=== PATIENT | female | born 1960 | race Two or more races ===

== ENCOUNTER 2016-12-08 14:15 | Emergency (ER) | payer BC ==
[2016-12-08 15:37] LABS: Hematocrit 42 % (35-47); Hemoglobin 14.1 g/dl (12.0-16.0); Mean Corpuscular HGB Conc 34 g/dl (31-36); Mean Corpuscular Hemoglobin 32 pg (27-31); Mean Corpuscular Volume 95 fL (80-97); Mean Platelet Volume 7 um3 (7.4-10.4); Red Blood Count 4.44 10^6/ul (4.0-5.4); Red Cell Distribution Width 14 % (10.5-15); White Blood Count 6.4 10^3/ul (3.5-10.8)
[2016-12-08 15:40] LABS: Albumin 4.2 g/dL (3.2-5.2); BUN/Creatinine Ratio 10.9 (8-20); Calcium 9.5 mg/dL (8.6-10.3); EGFR Non-African American 95.6 (>60); Globulin 3.1 g/dL (2-4); Potassium 3.5 mmol/L (3.5-5.0); Total Bilirubin 0.2 mg/dL (0.2-1.0); Total Protein 7.3 g/dL (6.4-8.9)
[2016-12-08 16:11] LABS: TSH (Thyroid Stimulating Horm) 1.67 mcIU/mL (0.34-5.60)
--- NOTE | 2016-12-08 17:10 | ED ---
Abdominal Pain/Female - HPI Summary HPI Summary: Pt here w/ sx of feeling lightheaded and dizzy x 1 month. Fell today at work while turning around walking. Co-workers were teasing her about being intoxicated as she was unsteady, walking into [employer], etc d/t dizziness. Feels fatigued. Denies chest pain, SOB but does have SHEETS and has not been eating as she has a reduced appetite. Epigastric and Rt sided ab pain x 3-4 months - constant, dull aching with intermittent sharp pains. When she does eat, has diarrhea which is black and tarry - denies claire hematochezia, mucous stools. Pt 's note from PCP indicates FREDRICK was performed but no stool collected. Denies fever, chills, skin changes. H/o colonoscopy which was normal. Advised to have f/u in 3 years as her sister has colon ca - she has not had repeat performed yet. Smokes. She personally has h/o breast CA - radiation w/o chemo. Was offered 5 year tx but d/t low risk evaluation, she opted to avoid tx. Past Med hx: IBS - no significant issues to report. Denies use of NSAID's. - History of Current Complaint Chief Complaint: EDAbdPain Stated Complaint: DIZZY/LIGHT HEADED Time Seen by Provider: 12/08/16 16:44 Hx Obtained From: Patient Pain Intensity: 7 Allergies/Adverse Reactions: Allergies Allergy/AdvReac Type Severity Reaction Status Date / Time No Known Allergies Allergy Verified 12/08/16 14:16 PMH/Surg Hx/FS Hx/Imm Hx Previously Healthy: Yes Endocrine/Hematology History: Denies: Hx Anticoagulant Therapy, Hx Blood Disorders, Hx Thyroid Disease, Hx Anemia, Hx Unexplained Bleeding, Autoimmune Disease GI History: Reports: Hx Irritable Bowel Denies: Hx Cirrhosis, Hx Crohn's Disease, Hx Diverticulosis, Hx Gall Bladder Disease, Hx Gastroesophageal Reflux Disease, Hx Gastrointestinal Bleed, Hx Obstructive Bowel, Hx Ulcer History: Reports: Other Problems/Disorders - hysterectomy with partial oophorectomy - Cancer History Cancer Type, Location and Year: Rt breast cancer Hx Chemotherapy: No Hx Radiation Therapy: Yes Infectious Disease History: No Infectious Disease History: Denies: Traveled Outside the [place] in Last 30 Days - Family History Known Family History: Positive: Other - sister - colon CA - Social History Occupation: Employed Full-time Lives: With Family Alcohol Use: None Hx Substance Use: No Substance Use Type: Reports: None Hx Tobacco Use: Yes Smoking Status (MU): Current Every Day Smoker Review of Systems Positive: Chills - feels cold today, Fatigue. Negative: Fever Eyes: Negative ENT: Negative Cardiovascular: Negative Respiratory: Negative Gastrointestinal: Other - see HPI Positive: see HPI, other - ab pain sometimes worse w/ urination - no pain in pelvis or vaginal area w/ urination. Negative: burning, discharge, frequency, flank pain, hematuria Musculoskeletal: Negative Skin: Negative Neurological: Other - dizziness as in HPI Positive: Headache, Weakness. Negative: Paresthesia, Numbness Psychological: Normal All Other Systems Reviewed And Are Negative: Yes Physical Exam Triage Information Reviewed: Yes Vital Signs On Initial Exam: Initial Vitals Temp Pulse Resp BP Pulse Ox 98.6 F 67 16 172/102 100 12/08/16 14:16 12/08/16 14:16 12/08/16 14:16 12/08/16 14:16 12/08/16 14:16 Vital Signs Reviewed: Yes Appearance: Positive: Well-Appearing - appears mildly fatigued, No Pain Distress - appears comfortable lying on stretcher, Thin Skin: Positive: Warm, Dry Head/Face: Positive: Normal Head/Face Inspection Eyes: Positive: Normal, EOMI, Conjunctiva Clear - anicteric sclera ENT: Positive: Hearing grossly normal Neck: Positive: Supple, Nontender Respiratory/Lung Sounds: Positive: Clear to Auscultation, Breath Sounds Present Cardiovascular: Positive: Normal, RRR, Pulses are Symmetrical in both Upper and Lower Extremities, S1, S2. Negative: Murmur, Rub Abdomen Description: Positive: Soft, Other: - Rt side TTP - gaurding - no rebounding; epigastric TTP - no rebounding Bowel Sounds: Positive: Present Musculoskeletal: Positive: Normal, Strength/ROM Intact Neurological: Positive: Normal, Sensory/Motor Intact, Alert, Oriented to Person Place, Time, CN Intact II-III Psychiatric: Positive: Normal Diagnostics - Vital Signs Vital Signs Temp Pulse Resp BP Pulse Ox 12/08/16 15:18 98.2 F 65 16 166/83 98 12/08/16 14:16 98.6 F 67 16 172/102 100 - Laboratory Lab Results: Lab Results 12/08/16 12/08/16 12/08/16 Range/Units 15:15 15:15 15:15 WBC 6.4 (3.5-10.8) 10^3/ul RBC 4.44 (4.0-5.4) 10^6/ul Hgb 14.1 (12.0-16.0) g/dl Hct 42 (35-47) % MCV 95 (80-97) fL MCH 32 H (27-31) pg MCHC 34 (31-36) g/dl RDW 14 (10.5-15) % Plt Count 292 (150-450) 10^3/ul MPV 7 L (7.4-10.4) um3 Neut % (Auto) 42.0 (38-83) % Lymph % (Auto) 47.4 H (25-47) % [place] % (Auto) 7.5 (1-9) % Eos % (Auto) 2.0 (0-6) % Baso % (Auto) 1.1 (0-2) % Absolute Neuts (auto) 2.7 (1.5-7.7) 10^3/ul Absolute Lymphs (auto) 3.1 (1.0-4.8) 10^3/ul Absolute Monos (auto) 0.5 (0-0.8) 10^3/ul Absolute Eos (auto) 0.1 (0-0.6) 10^3/ul Absolute Basos (auto) 0.1 (0-0.2) 10^3/ul Absolute Nucleated RBC 0.01 10^3/ul Nucleated RBC % 0.2 Sodium 137 (133-145) mmol/L Potassium 3.5 (3.5-5.0) mmol/L Chloride 104 (101-111) mmol/L Carbon Dioxide 26 (22-32) mmol/L Anion Gap 7 (2-11) mmol/L BUN 7 (6-24) mg/dL Creatinine 0.64 (0.51-0.95) mg/dL Est GFR ( Amer) 123.0 (>60) Est GFR (Non-Af Amer) 95.6 (>60) BUN/Creatinine Ratio 10.9 (8-20) Glucose 81 (70-100) mg/dL Lactic Acid 0.4 L (0.5-2.0) mmol/L Calcium 9.5 (8.6-10.3) mg/dL Magnesium 2.0 (1.9-2.7) mg/dL Total Bilirubin 0.20 (0.2-1.0) mg/dL AST 17 (13-39) U/L ALT 10 (7-52) U/L Alkaline Phosphatase 73 (34-104) U/L Troponin I 0.00 (<0.04) ng/mL Total Protein 7.3 (6.4-8.9) g/dL Albumin 4.2 (3.2-5.2) g/dL Globulin 3.1 (2-4) g/dL Albumin/Globulin Ratio 1.4 (1-3) TSH 1.67 (0.34-5.60) mcIU/mL Result Diagrams: 12/08/16 15:15 12/08/16 15:15 Lab Statement: Any lab studies that have been ordered have been reviewed, and results considered in the medical decision making process. Re-Evaluation - Re-Evaluation First Eval Change: Unchanged - pt declined pain medication Abdominal Pain Fem Course/Dx - Course Course Of Treatment: Pt presents w/ 3-4 month h/o ab pain and fatigue past 1 month. Admits to melena stools and Rt sided pain primarily. She had an episode of dizziness today which took her to her PCP's office - sent here for further evaluation. Labs are WNL and do not appear to reflect infection however her CT scan reveals an inflammed section of her distal colon which cannot rule out neoplasm. Discussed possible dx options of these findings with pt and and encouraged rest until cleared by PCP. Provided zofran so pt may eat and drink to prevent weakness again. Advised calling PCP tomorrow for close follow- up with further labs and colonoscopy. Pt and agree w/ plan. She declined pain meds and saline while here. - Diagnoses Provider Diagnoses: Colitis Discharge - Discharge Plan Condition: Stable Disposition: HOME Prescriptions: Ondansetron ODT TAB* [Zofran 4 MG Odt TAB*] 4 mg PO Q8H PRN #10 tab.odt PRN Reason: Nausea Patient Education Materials: Colitis (ED) Forms: *Work Release Referrals: Clover Murphy MD [Primary Care Provider] - Additional Instructions: Your CT scan today reveals inflammation of your distal colon. This may be due to infection cause or inflammatory cause. Inflammatory causes include but are not limited to Crohn's, Ulcerative colitis, chronic diarrhea, and/or colon cancer. It is important that you stay hydrated, rest and follow-up with your PCP this week to schedule a colonoscopy LIB[facility]. Call tomorrow to make an appointment. *If you develop weakness, fatigue, vomiting, bloody diarrhea, chest pain or shortness of breath, return to ED
[2016-12-08] MEDS ORDERED: Ondansetron INJ* 2 MG/ML VIAL IV ONE (17:46)
[2016-12-08] MEDS ORDERED: Morphine INJ* 4 MG/ML 1 ML SYRINGE IV ONE (17:46)
[2016-12-08 17:57] LABS: C Reactive Protein 1.17 mg/L (< 5.00)
[2016-12-08] MEDS ORDERED: Iohexol 300* (CONTRAST) 10 ML SDV IV ONE (20:04)
--- NOTE | 2016-12-08 20:23 | RAD ---
CLINICAL HISTORY: Abdominal pain, melena, weakness COMPARISON: None TECHNIQUE: Multiple contiguous axial CT scans were obtained of the abdomen and pelvis after the administration of intravenous contrast. Coronal and sagittal multiplanar reformations are submitted for review. Oral contrast was administered. Delayed images were obtained through the abdomen and pelvis. FINDINGS: LUNG BASES: The lung bases are clear. LIVER: The liver is diffusely low in attenuation compared to the spleen. There are no focal hepatic parenchymal masses. BILE DUCTS: There is no intrahepatic or extrahepatic biliary dilatation. GALLBLADDER: The gallbladder is normal, without pericholecystic inflammatory change. PANCREAS: The pancreas is normal, without mass or ductal dilatation. SPLEEN: Normal in size and appearance. UPPER GI TRACT: Evaluation of the gastrointestinal tract is limited by incomplete gastric distention. The upper GI tract is unremarkable. SMALL BOWEL AND MESENTERY: The small bowel is normal in contour, course, and caliber. There is no obstruction or dilatation. COLON: There is mucosal thickening of the distal sigmoid colon and rectum. ADRENALS: Normal bilaterally. KIDNEYS: A simple renal cyst is noted on the right BLADDER: The bladder is smooth in contour. PELVIC ORGANS: The pelvic organs are not visualized. AORTA: There is calcific atherosclerotic disease of the abdominal aorta and its branches, without aneurysmal dilatation IVC: Unremarkable LYMPH NODES: There is no lymphadenopathy by size criteria. ABDOMINAL WALL: There is no evidence for abdominal wall hernia. BONES AND SOFT TISSUES: Degenerative changes are noted OTHER: None IMPRESSION: 1. MUCOSAL THICKENING OF THE DISTAL COLON. WHILE THIS MAY BE INFECTIOUS OR INFLAMMATORY IN NATURE, MUCOSAL NEOPLASM IS ALSO WITHIN THE DIFFERENTIAL. RECOMMEND CONSIDERATION OF CORRELATION WITH DIRECT VISUALIZATION IN THE NONACUTE SETTING. 2. FATTY INFILTRATION OF THE LIVER. 3. ATHEROSCLEROSIS
[2016-12-08] MEDS ORDERED: Ondansetron ODT TAB* 4 MG PO ONE (20:57)
[2016-12-08 21:16] VITALS: BP 133/84
== END 2016-12-08 21:16 | disposition home or self-care (01) ==
LOC: ED 14:15
DX: R42 Dizziness and giddiness (principal); R53.83 Other fatigue; F17.210 Nicotine dependence, cigarettes, uncomplicated; R51 Headache; R53.1 Weakness; K52.9 Noninfective gastroenteritis and colitis, unspecified
CPT/HCPCS: 36415; 74177; 80053; 83605; 83690; 83735; 84443; 84484; 85025; 85610; 85730; 86140; 86850; 86900; 86901; 93005; 96374; 96375; 99283; A9270-GY; J2270; J2405; Q9967

== ENCOUNTER 2019-04-30 07:40 | Emergency (ER) | payer BC ==
[2019-04-30 07:48] VITALS: BP 143/87
--- NOTE | 2019-04-30 08:14 | UC ---
Throat Pain/Nasal Mihai HPI - HPI Summary HPI Summary: 59 yo female presents with sore throat. She tells me that over the last 5 days she has had a sore throat, runny nose, post nasal drip, and dry cough. This morning she had a fever of 102F that resolved with excedrin. She smokes heavily daily, but states her cough is not any worse - does feel a little more short of breath than usual. 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 She is eating, drinking, and tolerating po well. Denies fatigue, chest pain, abdominal pain, n/v. - History of Current Complaint Chief Complaint: UCGeneralIllness Stated Complaint: SORE THROAT Time Seen by Provider: 04/30/19 08:11 Hx Obtained From: Patient Onset/Duration: Gradual Onset Severity: Mild Pain Intensity: 3 Pain Scale Used: 0-10 Numeric - Allergies/Home Medications Allergies/Adverse Reactions: Allergies Allergy/AdvReac Type Severity Reaction Status Date / Time No Known Allergies Allergy Verified 04/30/19 07:48 PMH/Surg Hx/FS Hx/Imm Hx GI/ History: Gastroesophageal Reflux Psychological History: Anxiety, Depression Other History Of: Negative For: Anticoagulant Therapy - Surgical History Surgical History: Yes Surgery Procedure, Year, and Place: lumpectomy ,hyster,lymph node removed - Family History Known Family History: Positive: Other - sister - colon CA - Social History Lives: With Family Alcohol Use: None Substance Use Type: None Smoking Status (MU): Light Every Day Tobacco Smoker Review of Systems All Other Systems Reviewed And Are Negative: No Constitutional: Positive: Fever Skin: Positive: Negative Eyes: Positive: Negative ENT: Positive: Sore Throat Respiratory: Positive: Cough Cardiovascular: Positive: Negative Neurovascular: Positive: Negative Neurological: Positive: Headache Psychological: Positive: Negative Physical Exam - Summary Physical Exam Summary: GENERAL: NAD. WDWN. No pain distress. SKIN: No rashes, sores, lesions, or open wounds. HEENT: Head: AT/NC Eyes: EOM intact. Conjunctiva clear without inflammation or discharge. Ears: Hearing grossly normal. TMs intact, no bulging, erythema, or edema. Nose: Nasal mucosa pink and moist. Mild ttp frontal sinuses. Throat: Posterior oropharynx without exudates, erythema, or tonsillar enlargement. Uvula midline. NECK: Supple. Nontender. No lymphadenopathy. CHEST: Moderate wheezing throughout. No accessory muscle use. Breathing comfortably and in no distress. CV: RRR. Pulses intact. Cap refill <2seconds NEURO: Alert. PSYCH: Age appropriate behavior. Triage Information Reviewed: Yes Vital Signs: Initial Vital Signs Temp 97.8 F 04/30/19 07:45 Pulse 77 04/30/19 07:45 Resp 20 04/30/19 07:45 BP 143/87 04/30/19 07:45 Pulse Ox 100 04/30/19 07:45 Laboratory Tests 04/30/19 08:17 Group A Strep Rapid Negative Vital Signs Reviewed: Yes Diagnostics - Radiology CXR Radiology Interpretation Completed By: Radiologist Summary of Radiographic Findings: IMPRESSION: 1. No acute cardiopulmonary process by radiograph. 2. There is a 1 cm lobulated pulmonary nodule in the right upper lobe (unknown chronicity). Its calcified component is a reassuring feature. Although chronic calcified granulomatous disease is likely, chest CT for further catheterization is recommended if not previously done. Throat Pain/Nasal Course/Dx - Course Course Of Treatment: CXR as above. POC strep negative. In the clinic she was given a duoneb treatment with good relief of wheezing. Suspect sinusitis/COPD exacerbation. Discussed XR findings with pt and she has been aware of this nodule for many years and states it has been "looked into". - Differential Dx/Diagnosis Provider Diagnosis: Sinusitis, Cough Discharge ED - Sign-Out/Discharge Documenting (check all that apply): Patient Departure All imaging exams completed and their final reports reviewed: Yes - Discharge Plan Condition: Stable Disposition: HOME Prescriptions: Azithromycin TAB* [Zithromax TAB (Z-LUDA) 250 mg #6 tabs] 2 tab PO .TODAY, THEN 1 DAILY #1 luda predniSONE 20 mg TAB [Deltasone 20 MG TAB*] 40 mg PO DAILY #10 tab Patient Education Materials: Sinusitis (ED), Acute Cough (ED) Referrals: Clover Murphy MD [Primary Care Provider] - Additional Instructions: If you develop a fever, shortness of breath, chest pain, new or worsening symptoms - please call your PCP or go to the ED immediately. Your blood pressure was mildly elevated at todays visit. Please see your primary provider within 4 weeks for recheck and re-evaluation. - Billing Disposition and Condition Condition: STABLE Disposition: Home
[2019-04-30] MEDS ORDERED: Albuterol/Ipratropium NEB.SOL* Albuterol 2.5 MG/Ipratropium 0.5 MG 3 ML INH ONE (08:22)
== END 2019-04-30 09:35 | disposition home or self-care (01) ==
LOC: UCEAST 07:40
DX: J32.9 Chronic sinusitis, unspecified (principal); F17.290 Nicotine dependence, other tobacco product, uncomplicated; J02.9 Acute pharyngitis, unspecified; R91.1 Solitary pulmonary nodule; R05 Cough
CPT/HCPCS: 71046; 87651; 99212; A9270-GY; G0463